=== PATIENT | female | born 1945 | race Caucasian/White ===

== ENCOUNTER 2022-04-08 19:31 | Emergency (ER) | payer MEDICARE ==
[~2022-04-08 19:31] MED LIST: CARVEDILOL6.25 MG PO; CATAPRES0.1 MG PO; FLUTICASONE PRO16 GM INH; GABAPENTIN300 MG PO; LASIX20 MG PO; LEFLUNOMIDE20 MG PO; LISINOPRIL 20MG20 MG PO; NORTRIPTYLINE 225 MG PO; PANTOPRAZOLE SO40 MG PO; PRAVASTATIN SOD40 MG PO; SYNTHROID25 MC1 PO; VERAPAMIL HCL360 MG PO; XYZAL5 MG PO
[2022-04-08 20:52] LABS: BASOPHIL 0.4 % (0-2); EOSINOPHIL 0.7 % (0-7); HCT 33.2 % (37.0-47.0); HGB 10.8 g/dl (12.5-16.0); LYMPHOCYTE 23.1 % (15-48); MCH 30.7 pg (25.0-31.0); MCHC 32.5 g/dL (32.0-36.0); MCV 94.3 fL (78.0-100.0); MONOCYTE 22.6 % (0-12); MPV 10.4 fL (6.0-9.5); NEUTROPHIL 47.3 % (41-80); NRBC 0; PLT 169 K/uL (150-400); RBC 3.52 M/uL (4.20-5.40); RDW 13.8 % (11.5-14.0); WBC 9.1 K/uL (4.0-10.5)
[2022-04-08 21:05] LABS: INR 1.17 (0.9-1.2); PROTHROMBIN TIME 14.6 SECONDS (11.9-13.9)
[2022-04-08 21:14] LABS: ALKALINE PHOSHATASE 82 U/L (46-116); ALT 30 U/L (14-59); AST 21 U/L (15-37); BILIRUBIN - TOTAL 0.3 mg/dL (0.2-1.0); BUN 18 mg/dL (7-18); BUN/CREAT RATIO (CALC) 19.8 RATIO; CHLORIDE 102 mmol/L (98-107); CO2 (BICARBONATE) 29 mmol/L (21-32); CREATININE 0.91 mg/dL (0.51-0.95); GLOBULIN (CALCULATION) 3.5 g/dL; GLUCOSE 129 mg/dL (74-106); MAGNESIUM 2.1 mg/dL (1.8-2.4); POTASSIUM 3.8 mmol/L (3.5-5.1); TOTAL PROTEIN 6.5 g/dL (6.4-8.2)
[2022-04-08 22:11] LABS: CORONAVIRUS 2019 SARS-COV-2 NEGATIVE (NEGATIVE); INFLUENZA A NAA NEGATIVE (NEGATIVE)
[2022-04-08 22:43] LABS: AMPHETAMINES NEGATIVE (NEGATIVE); BARBITURATES NEGATIVE (NEGATIVE); ECSTASY (MDMA) NEGATIVE (NEGATIVE); MARIJUANA (THC) NEGATIVE (NEGATIVE); METHADONE NEGATIVE (NEGATIVE); OPIATES NEGATIVE (NEGATIVE); OXYCODONE POSITIVE (NEGATIVE)
== END 2022-04-08 23:40 | disposition home or self-care (01) ==
LOC: FER 19:31
PROVIDERS: Internal Medicine
DX: R53.1 Weakness (principal); I10 Essential (primary) hypertension; Z88.0 Allergy status to penicillin; Z88.2 Allergy status to sulfonamides; Z79.899 Other long term (current) drug therapy; Z20.822 Contact with and (suspected) exposure to COVID-19; Z28.310 Unvaccinated for COVID-19
CPT/HCPCS: 36415; 70450; 80053; 80305; 83605; 83735; 84484; 85025; 85610; 85730; 93005; G0480; J7040; U0002